=== PATIENT | male | born 1995 | race African-American/Black ===

== ENCOUNTER 2017-10-24 21:01 | Emergency (ER) | payer SELFPAY ==
[~2017-10-24] VITALS: Ht 198.1 cm; Wt 68.0 kg
[2017-10-24] MEDS ORDERED: PANTOPRAZOLE 40 MG 10ML VIAL IV STA (21:14)
[2017-10-24] MEDS ORDERED: ONDANSETRON HCL INJ 2 MG/ML VIAL IV STA (21:14)
[2017-10-24] MEDS ORDERED: SODIUM CHLORIDE 0.9% 1000ML 1,000 ML IV ONE ×2 (21:15→22:45)
[2017-10-24 21:42] LABS: BASOPHILS # (AUTO) 0.1 (0.0-0.1); BASOPHILS % 0.5 % (0.0-1.0); HEMATOCRIT 47.2 % (38.2-49.6); HEMOGLOBIN 16.4 g/dL (14.0-18.0); LYMPHOCYTES # (AUTO) 1.7 (1.0-3.2); LYMPHOCYTES % 10.9 % (18.0-39.1); MEAN CORPUSCULAR HGB CONC 34.7 g/dL (31-35); MEAN CORPUSCULAR VOLUME 86.4 fL (81-99); MONOCYTES # (AUTO) 1.4 (0.2-0.8); MONOCYTES % 8.8 % (4.4-11.3); NEUTROPHILS # (AUTO) 12.2 (2.1-6.9); NEUTROPHILS % 79.3 % (38.7-80.0); PLATELET COUNT 253 x10e3/uL (140-360); RED BLOOD COUNT 5.46 x10e6/uL (4.3-5.7); RED CELL DISTRIBUTION WIDTH 12.8 % (11.7-14.4)
[2017-10-24 22:09] LABS: ALBUMIN 5.6 g/dL (3.5-5.0); ALBUMIN/GLOBULIN RATIO 1.3 (0.8-2.0); ANION GAP 23.7 mmol/L (8-16); CALCIUM 11.7 mg/dL (8.4-10.2); CREATININE, SERUM 1.75 mg/dL (0.72-1.25); POTASSIUM 3.7 mmol/L (3.5-5.1)
[2017-10-24 22:44] VITALS: BP 112/71
== END 2017-10-24 23:37 | disposition home or self-care (01) ==
LOC: ER 21:01
DX: R11.2 Nausea with vomiting, unspecified (principal); F45.8 Other somatoform disorders; F41.9 Anxiety disorder, unspecified
CPT/HCPCS: 36415; 80053; 82150; 83690; 85025; 99284; J2405; J7030